=== PATIENT | female | born 1995 | race Caucasian/White ===

== ENCOUNTER 2017-11-03 22:15 | Emergency (ER) | payer BC, OTHER ==
[~2017-11-03] VITALS: Ht 175.3 cm; Wt 100.0 kg
[~2017-11-03 22:15] MED LIST: BIRHT CONTROL PO
[2017-11-03 22:16] VITALS: BP 149/95; PULSE 85; RESP 16; TEMP 99; O2SAT 99
[2017-11-03] MEDS ORDERED: TOBRAMYCIN SULFATE 0.3% OPTH OINT 3.5 GM TUBE LEFT EYE ONE (22:45)
--- NOTE | 2017-11-03 22:45 | PD ---
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 She states that she does not wear glasses or contacts. 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 She is a [employer] employee. She states that a drip of grease came off spatula and went into her left eye. The patient immediately rinsed her eye out at the eye station. She denies any pain. No blurred or double vision. No foreign body sensation. She was instructed to come down to be evaluated. Up-to -date with immunizations. Symptoms are mild. PFSH Past Medical History Narrative Medical Depression/anxiety Cancer: No Cardiovascular Problems: No Diabetes: No Endocrine: No Genitourinary: No Hepatitis: No Hiatal Hernia: No Immune Disorder: No Musculoskeletal: No Neurologic: No Psychiatric: No Reproductive: Yes (HX OVARIAN CYST) Respiratory: No Thyroid Disease: No Tetanus Vaccination: < 5 Years Past Surgical History Narrative Surgical Tonsillectomy, bilateral myringotomy tubes Body Medical Devices: NONE Ear Surgery: Yes (INSERTION EAR TUBES) Oral Surgery: Yes (T&A ; WISDOM TEETH) Tonsillectomy: Yes Other Surgery: Yes Social History Alcohol Use: No Tobacco Use: Yes Substance Use: No Allergies-Medications (Allergen,Severity, Reaction): Coded Allergies: No Known Allergies (Unverified Adverse Reaction, Unknown, 11/03/17) Reported Meds & Prescriptions Reported Meds & Active Scripts Active Reported [Birht Control] 1 Tab PO DAILY Review of Systems General / Constitutional: No: Fever Eyes: Positive: Redness, No: Diploplia, Blurred Vision, Photophobia, Drainage, Foreign Body Sensation, Pain, Tearing, Visual changes, Blindness HENT: No: Headaches Cardiovascular: No: Chest Pain or Discomfort Respiratory: No: Shortness of Breath Gastrointestinal: No: Abdominal Pain Genitourinary: No: Dysuria Musculoskeletal: No: Pain Skin: No Rash Neurologic: No: Weakness Psychiatric: No: Depression Endocrine: No: Polydipsia Hematologic/Lymphatic: No: Easy Bruising Physical Exam Narrative GENERAL: Well-nourished, well-developed patient. SKIN: Focused skin assessment warm/dry. HEAD: Normocephalic. EYES: No scleral icterus. No injection or drainage in the right eye. The left eye is slightly injected. Lids are flipped and no foreign body seen. Fluorescein stain reveals a 2 x 2 millimeter corneal abrasion at the 7:00 hour just outside the central vision. Visual acuity noted on the nursing chart. Patient's left eye is irrigated with a liter normal saline. NECK: Supple, trachea midline. No JVD or lymphadenopathy. CARDIOVASCULAR: Regular rate and rhythm without murmurs, gallops, or rubs. RESPIRATORY: Breath sounds equal bilaterally. No accessory muscle use. GASTROINTESTINAL: Abdomen soft, non-tender, nondistended. MUSCULOSKELETAL: No cyanosis, or edema. BACK: Nontender without obvious deformity. No CVA tenderness. Data Data Last Documented VS Vital Signs Date Time Temp Pulse Resp B/P (MAP) Pulse Ox O2 Delivery O2 Flow Rate FiO2 11/03/17 22:16 99.0 85 16 149/95 (113) 99 Room Air Orders Orders Tobramycin 0.3% Opth Oint (Tobrex 0.3% O (11/03/17 22:45) MDM Medical Decision Making Medical Screen Exam Complete: Yes Emergency Medical Condition: Yes Medical Record Reviewed: Yes Differential Diagnosis MDM: High Differential diagnoses: Acute conjunctivitis (bacterial, viral, allergic, traumatic), glaucoma, iritis, traumatic globe injury, foreign body, corneal abrasion, corneal ulcer, diabetic retinopathy, photokeratitis, herpes keratitis , CMV retinitis Narrative Course Left corneal abrasion left eye is irrigated with normal saline 1 L. She is given tobramycin ophthalmic ointment to left eye. Alcaine is instilled in left eye with good results. Visual acuity in the right eye is 20/20 and 20/20 in the left eye. 20 /15 with both eyes. Diagnosis Primary Impression: Left corneal abrasion Qualified Codes: S05.02XA - Injury of conjunctiva and corneal abrasion without foreign body, left eye, initial encounter Patient Instructions: General Instructions Additional Instructions: Rest. Wash eyelashes with baby shampoo 3 times daily. Warm compresses. Tobramycin ophthalmic ointment to the left eye 4 times daily.. Followup with an eye doctor in 1-2 days. [place] [facility] [place] Return to the ER if any problems. Med/Other Pt SpecificInfo: Prescription(s) given Disposition: 01 DISCHARGE HOME Condition: Stable Tom Martinez Nov 03, 2017 22:45
== END 2017-11-03 23:50 | disposition home or self-care (01) ==
LOC: NEPK 22:15
DX: S05.02XA Injury of conjunctiva and corneal abrasion without foreign body, left eye, initial encounter (principal); X58.XXXA Exposure to other specified factors, initial encounter; Y92.233 Cafeteria of hospital as the place of occurrence of the external cause; Y99.0 Civilian activity done for income or pay; Z72.0 Tobacco use
CPT/HCPCS: 99283